=== PATIENT | male | born 1960 | race Hispanic/Latino ===

== ENCOUNTER → 2022-05-11 | Outpatient (CLI) | payer OTHER | END | disposition home or self-care (01) | LOC: LAB 10:54 | PROVIDERS: ATTEND Otolaryngology Plastic Surgery within the Head & Neck | DX: H90.3 Sensorineural hearing loss, bilateral (principal) | CPT/HCPCS: 36415; 82565; 84520 ==

== ENCOUNTER → 2022-06-01 | Outpatient (CLI) | payer OTHER ==
[~2022-06-01] MED LIST: GADOTERATE MEGLUMINE 10 MMOL/20 ML VIAL IV ONE
== END | disposition home or self-care (01) ==
LOC: RAH 05-30 07:37
PROVIDERS: ATTEND Otolaryngology Plastic Surgery within the Head & Neck
DX: H90.3 Sensorineural hearing loss, bilateral (principal)
CPT/HCPCS: 70553; A9575

== ENCOUNTER → 2024-09-26 | Outpatient (CLI) | payer OTHER ==
[2024-09-26 21:36] VITALS: PULSE 64; RESP 14
[2024-09-26 22:00] VITALS: PULSE 62; RESP 12
[2024-09-26 22:30] VITALS: PULSE 62; RESP 12
[2024-09-26 23:00] VITALS: PULSE 58; RESP 12
[2024-09-27] VITALS (10 sets, daily range): PULSE 48–64; RESP 10–18
--- NOTE | 2024-09-27 02:25 | NUR ---
CYCLOBENZAPRINE 10MG,DICLOFENAC SODIUM GEL Addendum: 09/27/24 at 0229 by FAY RAYGOZA Amended: Links added.
== END | disposition home or self-care (01) ==
LOC: SLP 20:33
PROVIDERS: ATTEND Internal Medicine Pulmonary Disease
DX: G47.33 Obstructive sleep apnea (adult) (pediatric) (principal)
CPT/HCPCS: 95810

== ENCOUNTER → 2024-10-03 | Outpatient (CLI) | payer OTHER ==
[2024-10-03 21:30] VITALS: PULSE 80; RESP 12
[2024-10-03 22:00] VITALS: PULSE 70; RESP 16
[2024-10-03 22:30] VITALS: PULSE 74; RESP 14
[2024-10-03 23:00] VITALS: PULSE 68; RESP 14
[2024-10-03 23:30] VITALS: PULSE 68; RESP 12
[2024-10-04] VITALS (11 sets, daily range): PULSE 52–68; RESP 12–20
== END | disposition home or self-care (01) ==
LOC: SLP 20:32
PROVIDERS: ATTEND Internal Medicine Pulmonary Disease
DX: G47.33 Obstructive sleep apnea (adult) (pediatric) (principal); R06.83 Snoring; I10 Essential (primary) hypertension; R53.83 Other fatigue
CPT/HCPCS: 95811